=== PATIENT | male | born 1995 | race Caucasian/White ===

== ENCOUNTER 2016-11-10 20:23 | Emergency (ER) | payer OTHER ==
[~2016-11-10] VITALS: Ht 185.4 cm; Wt 77.1 kg
--- NOTE | 2016-11-10 20:27 | NUR ---
PT BIBRA TO ER BED 11. PER REPORT PT, EXHIBITING BIZZARE BEHAVIOR. NAKED AND WAS BREAKING WINDOWS. POSSIBLE SUBSTANCE INTOXICATION. PD AT BEDSIDE. AWAITING MD ZEE.
[2016-11-10 20:57] LABS: CALCIUM, SERUM 8.8 mg/dL (8.5-10.1); CARBON DIOXIDE 27 mmol/L (21-32); CHLORIDE 103 mmol/L (98-107); CREATININE 1.3 mg/dL (0.6-1.3); GLUCOSE 185 mg/dL (74-106); POTASSIUM 2.9 mmol/L (3.5-5.1); SODIUM SERUM 141 mmol/L (136-145); UREA NITROGEN, BLOOD 17 mg/dL (7-18)
[2016-11-10] MEDS ORDERED: LORAZEPAM INJ 2 MG/ML VIAL IV ONE (21:00)
[2016-11-10] MEDS ORDERED: IV NS 0.9% 1,000 ML BAG IV ONE (21:00)
[2016-11-10 21:02] LABS: ALANINE AMINOTRANSFERASE 23 U/L (12-78); ALBUMIN 4.4 g/dL (3.4-5.0); ALCOHOL, BLOOD < 3 mg/dL (0-0); ALKALINE PHOSPHATASE 126 U/L (46-116); ASPARTATE AMINOTRANSFERASE 25 U/L (15-37); BASOPHILS # (AUTO) 0.5 /CMM (0.0-0.2); BILIRUBIN,DIRECT 0.2 mg/dL (0.0-0.2); BILIRUBIN,TOTAL 0.9 mg/dL (0.2-1.0); EOSINOPHILS % (AUTO) 0.1 % (0.0-6.0); HEMATOCRIT 46 % (39-51); HEMOGLOBIN 15.9 g/dL (13.5-17.5); LYMPHOCYTES # (AUTO) 0.7 /CMM (0.8-4.8); LYMPHOCYTES % (AUTO) 5.8 % (20.0-44.0); MEAN CORPUSCULAR HEMOGLOBIN 31 PG (26.0-33.0); MEAN CORPUSCULAR HGB CONC 35 g/dl (31.0-36.0); MEAN CORPUSCULAR VOLUME 89 fL (80-96); MONOCYTES # (AUTO) 0.7 /CMM (0.1-1.30); MONOCYTES % (AUTO) 5.6 % (2.0-12.0); NEUTROPHILS % (AUTO) 84.5 % (43.0-81.0); PLATELET COUNT (AUTO) 159 /CMM (150-450); RED BLOOD CELL COUNT(AUTO) 5.15 MIL/uL (4.5-6.0); TOTAL PROTEIN, SERUM 7.2 g/dL (6.4-8.2); WHITE BLOOD COUNT (AUTO) 12.9 K/uL (4.3-11.0)
[2016-11-10] MEDS ORDERED: LORAZEPAM INJ 2 MG/ML VIAL ONE (21:02)
[2016-11-10 21:05] LABS: ACETAMINOPHEN < 2 ug/ml (10-30); SALICYLATE < 2.8 mg/dL (2.8-20.0)
[2016-11-10] MEDS ORDERED: HALOPERIDOL LACTATE INJ 5 MG/ML VIAL IV ONE (21:30)
[2016-11-10] MEDS ORDERED: POTASSIUM CHLORIDE 20 MEQ TAB.PRT.SR PO ONE ×2 (21:30→23:15)
[2016-11-10 22:03] LABS: BAND % (MANUAL) 2 % (0.0-5.0); EOSINOPHILS % (MANUAL) 1 % (0-4); LYMPHOCYTES % (MANUAL) 8 % (16-48); MONOCYTES % (MANUAL) 5 % (0-11.0); NEUTROPHILS % (MANUAL) 84 (42-76)
[2016-11-10] MEDS ORDERED: HALOPERIDOL LACTATE INJ 5 MG/ML VIAL ONE (22:28)
--- NOTE | 2016-11-10 22:33 | NUR ---
PT IS YELLING, SCREAMING NON SENSICAL WORDS, NOT FOLLOWING ER COMMANDS. MD NOTIFIED. PT PLACED ON FIELD RADIO TECHNICIAN. SKIN WARM AND DRY, RR EVEN AND UNLABORED. MEDICATED PT ORDERED
--- NOTE | 2016-11-10 23:06 | NUR ---
Patient Combative with [employer], ER will call when ready for CT Scan.
[2016-11-10] MEDS ORDERED: POTASSIUM CL. PREMIX PERIPHER. 200 ML ONE (23:15)
--- NOTE | 2016-11-10 23:27 | NUR ---
REPORT TO MARILEE FINK FOR LUC[facility].
[2016-11-10] MEDS: POTASSIUM CL. PREMIX PERIPHER. 50 ML IV SCH (23:28)
--- NOTE | 2016-11-11 01:05 | NUR ---
PT RESTING IN ER BED, NAD NOTED, SKIN WARM AND DRY. PT IS ON SHIP CEILER. WILL CONTINUE
--- NOTE | 2016-11-11 01:06 | NUR ---
PT TRANSPORTED TO CT VIA GURNEY BY RADIOLOGY TEAM
--- NOTE | 2016-11-11 02:25 | NUR ---
VITAL SIGNS UPDATED.
--- NOTE | 2016-11-11 02:25 | NUR ---
PATIENT BROTHER IS AT BED SIDE
[2016-11-11] MEDS: POTASSIUM CL. PREMIX PERIPHER. 50 ML IV SCH (05:53)
[2016-11-11 05:55] VITALS: BP 123/87
== END 2016-11-11 05:56 | disposition home or self-care (01) ==
LOC: EDSEX 20:24 → ER 20:24
DX: R00.1 Bradycardia, unspecified (principal); F17.200 Nicotine dependence, unspecified, uncomplicated
CPT/HCPCS: 36415 ×2; 70450; 80048; 80076; 80329; 84132; 84484; 85025; 93005 ×2; 96374; 96375; 99285; A4606; G0480 ×2; J1630; J2060; J3480; J7030; Z7610